=== PATIENT | male | born 1980 | race Caucasian/White ===

== ENCOUNTER 2021-03-19 08:30 | Observation (INO) | payer OTHER ==
[2021-03-19 09:09] VITALS: BMI 22.8
[2021-03-19] MEDS ORDERED: SODIUM CHLORIDE 0.9% 500 ML INFUS.BAG IV ONE ×2 (09:10→12:41)
[2021-03-19 09:53] LABS: BASO % 0.3 % (0-2.0); HEMATOCRIT 42.6 % (35.4-49); HEMOGLOBIN 14.7 GM/dL (11.7-16.9); LYMPH % 7.9 % (8-40); MCH 32.7 pg (25.7-33.7); MCHC 34.5 g/dl (32.0-35.9); MEAN CELL VOLUME 94.8 fl (80-96); MEAN PLT VOLUME 8.3 fl (7.5-11.1); MONO % 10.9 % (3.8-10.2); NEUT % 80.9 % (42.8-82.8); PLATELET COUNT 252 10^3/uL (134-434); RBC 4.49 M/mm3 (4.00-5.60); WHITE BLOOD COUNT 9.9 K/mm3 (4.0-10.0)
[2021-03-19 09:59] LABS: INR 1.2 (0.83-1.09); PROTHROMBIN TIME (PATIENT) 13.8 SEC (9.7-13.0)
[2021-03-19 10:01] LABS: ACTIVATED PTT 28.5 SECONDS (25.2-36.5)
[2021-03-19] MEDS ORDERED: ACETAMINOPHEN 1000 MG/100 ML BAG IVPB ONE (10:06)
[2021-03-19] MEDS ORDERED: ACETAMINOPHEN INJECTION 100 ML IVPB ONE (10:36)
[2021-03-19 10:43] LABS: CHLORIDE 103 mmol/L (98-107); SODIUM 137 mmol/L (136-145)
[2021-03-19 10:45] LABS: BLOOD UREA NITROGEN 14.9 mg/dL (7-18); CALCIUM 9.4 mg/dL (8.5-10.1)
[2021-03-19 10:46] LABS: ALBUMIN 4.4 g/dl (3.4-5.0); GLUCOSE,RANDOM 103 mg/dL (74-106)
[2021-03-19 10:49] LABS: CREATININE 1.2 mg/dL (0.55-1.3); PHOSPHOROUS 3.3 mg/dL (2.5-4.9); SGOT/AST 25 U/L (15-37)
[2021-03-19 10:50] LABS: BILIRUBIN,TOTAL 0.8 mg/dL (0.2-1); TOT PROT 8.3 g/dl (6.4-8.2)
[2021-03-19 10:51] LABS: ALK PHOS 78 U/L (45-117)
[2021-03-19 10:55] LABS: MAGNESIUM 2.4 mg/dL (1.8-2.4)
[2021-03-19 11:14] LABS: ANION GAP 6 MMOL/L (8-16); CO2 28 mmol/L (21-32); SGPT/ALT 40 U/L (13-61)
[2021-03-19] MEDS ORDERED: SODIUM CHLORIDE 1,000 ML IV SCH (16:00)
[2021-03-19] MEDS ORDERED: ZINC SULFATE 220 MG CAPSULE (FP) ONE (21:21)
[2021-03-19] MEDS ORDERED: ASCORBIC ACID 500 MG TABLET (FP) ONE (21:22)
[2021-03-19] MEDS ORDERED: OSELTAMIVIR PHOSPHATE 75 MG CAPSULE PO SCH (22:00)
[2021-03-19] MEDS: ZINC SULFATE 220 MG CAPSULE (FP) PO SCH (22:15)
[2021-03-19] MEDS: ASCORBIC ACID 500 MG TABLET (FP) PO SCH (22:15)
[2021-03-20 08:37] VITALS: TEMP 98.3
[2021-03-20 09:24] LABS: BASO % 0.5 % (0-2.0); EOS % 0.2 % (0-4.5); HEMATOCRIT 40.1 % (35.4-49); HEMOGLOBIN 13.7 GM/dL (11.7-16.9); LYMPH % 13.1 % (8-40); MCH 32.2 pg (25.7-33.7); MCHC 34.1 g/dl (32.0-35.9); MEAN CELL VOLUME 94.4 fl (80-96); MEAN PLT VOLUME 8.3 fl (7.5-11.1); MONO % 12.6 % (3.8-10.2); NEUT % 73.6 % (42.8-82.8); PLATELET COUNT 235 10^3/uL (134-434); RBC 4.24 M/mm3 (4.00-5.60); RDW 13.2 % (11.9-15.9); WHITE BLOOD COUNT 8.9 K/mm3 (4.0-10.0)
[2021-03-20 09:35] LABS: ACTIVATED PTT 30.7 SECONDS (25.2-36.5)
[2021-03-20 09:37] LABS: INR 1.17 (0.83-1.09); PROTHROMBIN TIME (PATIENT) 13.5 SEC (9.7-13.0)
[2021-03-20 09:53] LABS: ALBUMIN 3.8 g/dl (3.4-5.0); BLOOD UREA NITROGEN 15.6 mg/dL (7-18); PHOSPHOROUS 3.2 mg/dL (2.5-4.9)
[2021-03-20 09:54] LABS: BILIRUBIN,TOTAL 0.6 mg/dL (0.2-1); TOT PROT 7.4 g/dl (6.4-8.2)
[2021-03-20 09:55] LABS: CALCIUM 8.7 mg/dL (8.5-10.1)
[2021-03-20 09:56] LABS: CREATININE 0.9 mg/dL (0.55-1.3); MAGNESIUM 2.5 mg/dL (1.8-2.4)
[2021-03-20] MEDS ORDERED: ZINC SULFATE 220 MG CAPSULE (FP) ONE (09:56)
[2021-03-20] MEDS ORDERED: ASCORBIC ACID 500 MG TABLET (FP) ONE (09:56)
[2021-03-20] MEDS: ZINC SULFATE 220 MG CAPSULE (FP) PO SCH (10:00)
[2021-03-20] MEDS: ASCORBIC ACID 500 MG TABLET (FP) PO SCH (10:00)
[2021-03-20 10:03] VITALS: BP 112/84; PULSE 87
== END 2021-03-20 14:20 | disposition home or self-care (01) ==
LOC: JER 08:30 → JERBED 11:16
PROVIDERS: ADMIT Family Medicine; ATTEND Internal Medicine
PROC: 3E033NZ Introduction of Analgesics, Hypnotics, Sedatives into Peripheral Vein, Percutaneous Approach (ICD-10-PCS; principal; 2021-03-19)
PROC: 3E0337Z Introduction of Electrolytic and Water Balance Substance into Peripheral Vein, Percutaneous Approach (ICD-10-PCS; 2021-03-19)
DX: U07.1 COVID-19 (principal); J09.X2 Influenza due to identified novel influenza A virus with other respiratory manifestations; R11.10 Vomiting, unspecified; R55 Syncope and collapse; R50.9 Fever, unspecified
CPT/HCPCS: 36415; 70450-TC; 71045-TC-FY; 71275-TC; 80053; 82550; 82962; 83735; 84100; 84443; 84484; 85025; 85610; 85730; 86140; 87804; 93005; 93010; 93308; 96361; 96374; 99285-25; C9803-CS; G0378; Q9967; U0003; U0005